=== PATIENT | male | born 1995 | race Caucasian/White ===

== ENCOUNTER 2021-04-21 07:25 | Emergency (ER) | payer OTHER ==
--- NOTE | 2021-04-21 07:55 | EDM.PDOC ---
ED HPI GENERAL MEDICAL PROBLEM - General Chief Complaint: General Stated Complaint: PCR TEST NEEDED Time Seen by Provider: 04/21/21 07:41 - History of Present Illness INITIAL COMMENTS - FREE TEXT/NARRATIVE: History of present illness: [] The patient is moving to [place] in with his dad he is carrying his car and gets up [place]. [place] because he had not had a PCR Covid test. He is requesting a test and has no request for any further medical evaluation. He understands that he is paying for an emergency department visit to get this expedited and that he has opportunity to ask any questions or have any exam by the emergency physician if he feels those are necessary. He declines that offer Review of systems: As per history of present illness and below otherwise all systems reviewed and negative. Past medical history: As per history of present illness and as reviewed below otherwise noncontributory. Surgical history: As per history of present illness and as reviewed below otherwise noncontributory. Social history: No reported history of drug or alcohol abuse. Family history: As per history of present illness and as reviewed below otherwise noncontrib utory. Physical exam: Constitutional - well developed, well-nourished and in no acute distress HEENT - normocephalic, no evidence of trauma - external nose and mouth normal EYES - full EOM, no icterus - no evidence of inflammation, injection, or drainage Respiratory - no respiratory distress Musculoskeletal no gross deformity of long bones or joints - no tenderness, swelling or edema Neurologic - Alert Psychiatric - appropriate mood and affect with normal thought content Diagnostics: [] Therapeutics: [] Impression: [] Plan: [] Definitive disposition and diagnosis as appropriate pending reevaluation and review of above. - Related Data Allergies Allergy/AdvReac Type Severity Reaction Status Date / Time No Known Allergies Allergy Verified 04/21/21 07:57 Home Meds: Home Meds . [No Known Home Meds] 04/21/21 [History] ED ROS GENERAL - Review of Systems Review Of Systems: Comprehensive ROS is negative, except as noted in HPI. ED EXAM, GENERAL - Physical Exam Exam: See Below Free Text/Narrative:: My physical exam is in the HPI Course - Vital Signs Last Recorded V/S: Last Vital Signs Temp 36.0 C L 04/21/21 07:34 Pulse 100 04/21/21 07:34 Resp 17 04/21/21 07:34 BP 129/49 L 04/21/21 07:34 Pulse Ox 95 04/21/21 07:34 - Orders/Labs/Meds Labs: Laboratory Tests 04/21/21 Range/Units 07:38 SARS-CoV-2 RNA ([facility]) NEGATIVE (NEGATIVE) Departure - Departure Time of Disposition: 08:42 Disposition: Home, Self-Care 01 Condition: Good Clinical Impression: COVID-19 ruled out by laboratory testing - Discharge Information Referrals: PCP,None [Primary Care Provider] - Forms: ED Department Discharge Additional Instructions: [facility] [address] [place] [id number] [facility] [address] [place] [id number] The following information is given to patients seen in the emergency department who are being discharged to home. This information is to outline your options for follow-up care. We provide all patients seen in our emergency department with a follow-up referral. The need for follow-up, as well as the timing and circumstances, are variable depending upon the specifics of your emergency department visit. If you don't have a primary care physician on staff, we will provide you with a referral. We always advise you to contact your personal physician following an emergency department visit to inform them of the circumstance of the visit and for follow-up with them and/or the need for any referrals to a consulting specialist. The emergency department will also refer you to a specialist when appropriate. This referral assures that you have the opportunity for follow-up care with a specialist. All of these measure are taken in an effort to provide you with optimal care, which includes your follow-up. Under all circumstances we always encourage you to contact your private physician who remains a resource for coordinating your care. When calling for follow-up care, please make the office aware that this follow-up is from your recent emergency room visit. If for any reason you are refused follow-up, please contact the [facility] Emergency Department at and asked to speak to the emergency department charge nurse. Sepsis Event Note (ED) - Focused Exam Vital Signs: Vital Signs Temp Pulse Resp BP Pulse Ox 04/21/21 07:34 36.0 C L 100 17 129/49 L 95
== END 2021-04-21 09:04 | disposition home or self-care (01) ==
LOC: MW.ED 07:25
DX: Z20.822 Contact with and (suspected) exposure to COVID-19 (principal)
CPT/HCPCS: 99282; U0002